=== PATIENT | male | born 1970 | race Caucasian/White ===

== ENCOUNTER → 2022-11-23 07:56 | Outpatient (REF) | payer BC, SELFPAY | LOC: RAD 07:56 | PROVIDERS: ATTENDING PHYSICIAN Family Medicine | DX: R60.0 Localized edema (principal); Z87.891 Personal history of nicotine dependence; R22.43 Localized swelling, mass and lump, lower limb, bilateral | CPT/HCPCS: 93970 ==

== ENCOUNTER → 2023-08-05 06:45 | Outpatient (REF) | payer BC, SELFPAY | LOC: RCS 06:45 | PROVIDERS: ATTENDING PHYSICIAN Internal Medicine Cardiovascular Disease; FAMILY PHYSICIAN Family Medicine; REFERRING PHYSICIAN Specialist | DX: I35.0 Nonrheumatic aortic (valve) stenosis (principal); Q23.1 Congenital insufficiency of aortic valve; I51.7 Cardiomegaly; R03.0 Elevated blood-pressure reading, without diagnosis of hypertension | CPT/HCPCS: 93306 ==

== ENCOUNTER → 2023-08-06 10:52 | Outpatient (REF) | payer BC, SELFPAY | LOC: HWRAD 10:52 | PROVIDERS: ATTENDING PHYSICIAN Family Medicine | DX: I87.2 Venous insufficiency (chronic) (peripheral) (principal) | CPT/HCPCS: 93970 ==

== ENCOUNTER 2023-08-16 06:35 | Day surgery (SDC) | payer BC, SELFPAY ==
--- NOTE | 2023-07-23 10:22 | CM ---
Addendum entered by Angle Hudson 08/09/23 07:23:
Patient is no longer a same day patient.
Addendum entered by JESSICA Sparks 07/23/23 10:30:
Patient plans to stay on first floor and sleep on sofa until home PT works with him on steps in his house.
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
Original Note:
Patient is scheduled for an elective R TKR on 08/16/23- he is a same day patient. Spoke with patient prior to surgery. Introduced role of Orthopedic Navigator. Patient reports that he lives with his in a two story home. There are three steps to
enter and a flight of steps to the second floor. He currently functions independently. He plans to borrow a rolling walker. He has never had VN services. PCP is Dr. Des Ge.
Discussed orthopedic program and post surgical plans. Reviewed that he will have VN services initially (medicare.gov website and ratings reviewed) and will then start outpatient PT. Patient selects VN (face sheet faxed to VN to facilitate
confirmation of benefits) for his home care needs and come to [facility] for outpatient PT.
Patient is in agreement with plan and states that his will be home with him for one week.
Patient will complete online education.
Plan: Orthopedic Navigator will remain available to assist with the care of patient and will reassess discharge needs after surgery.
[2023-07-30 09:26] VITALS: BMI 37.8
[2023-07-30 10:06] LABS: Hematocrit 38.8 % (39.0-52.0); Hemoglobin 12.2 g/dL (13.0-18.0); Mean Corp Hgb Conc. 31.4 g/dL (33.0-37.0); Mean Corpuscular Hgb 25.7 pg (27.0-31.0); Mean Corpuscular Volume 81.7 fL (80.0-94.0); Mean Platelet Volume 13.7 fL (7.4-10.4); Platelet Count 96 10^3/uL (130-400); Red Blood Cell Count 4.75 10^6/uL (4.70-6.10); Red Cell Dist. Width 14.9 % (11.5-14.5); White Blood Cell Count 6.4 10^3/uL (4.8-10.8)
[2023-07-30 10:40] LABS: ALT (SGPT) 25 U/L (0-50); AST (SGOT) 31 U/L (17-59); Alkaline Phosphatase 78 U/L (38-126); Blood Urea Nitrogen 15 mg/dl (9-20); Calcium 9.5 mg/dl (8.4-10.2); Carbon Dioxide 26 mmol/L (22-30); Chloride 106 mmol/L (98-107); Estimated Creatinine Clearance > 125 ml/min; Glucose 139 mg/dl (70-99); Potassium 4.4 mmol/L (3.5-5.1); Sodium 140 mmol/L (135-145); Total Bilirubin 0.8 mg/dl (0.2-1.3); Total Protein 7.1 g/dl (6.3-8.2); eGFR > 60.00
[2023-07-30 11:59] LABS: Glycohemoglobin (HgbA1c) 6.7 % (4.0-5.6)
[2023-08-02 08:38] VITALS: BMI 37.8
[2023-08-16] VITALS (12 sets, daily range): BP systolic 110–174; BP diastolic 63–92; PULSE 78; O2SAT 98
[2023-08-16 09:24] LABS: Glucose - Point of Care 94 mg/dl (70-99)
[2023-08-16] MEDS: CELEBREX 200 MG PO (09:28)
[2023-08-16] MEDS: TYLENOL 650 MG PO ×3 (09:28→22:02)
[2023-08-16] MEDS: NORMOSOL-R 1000 IV ×2 (09:28→14:03)
[2023-08-16 11:43] LABS: Glucose - Point of Care 92 mg/dl (70-99)
--- NOTE | 2023-08-16 13:03 | CM ---
Addendum entered by Angle Hudson 08/17/23 06:40:
Correction: patient's initial PT eval is scheduled for , 08/18.
Original Note:
Reviewed chart. Patient had planned R TKR today. Met with patient and his at bedside. Confirmed information previously obtained for assessment. Also discussed discharge plans. The plan is for patient to go to his 's parent's home at
discharge. This home is a split level with no steps to enter and 5-6 between floors. He will have support from his when he goes home. Patient will go directly to outpatient PT and will come to . He has an appointment scheduled for Wednesday,
08/17. Reviewed two week follow up appointment with PA at Dr. Reid office for removal of cheng; this appointment is already scheduled.
Patient has a rolling walker at home. Discussed need for cane which his states that she will obtain.
He will use [facility] pharmacy for discharge prescriptions.
[2023-08-16 13:14] LABS: Glucose - Point of Care 105 mg/dl (70-99)
[2023-08-16] MEDS: NOVOLOG FLEXPEN-MODERATE RESISTANCE SC (13:50)
[2023-08-16] MEDS: XOPENEX 0.63 MG INHALANT SOLUTION INH (13:52)
[2023-08-16] MEDS: NEURONTIN 300 MG PO ×2 (15:47→22:00)
[2023-08-16] MEDS: NOVOLOG FLEXPEN SC (15:51)
[2023-08-16] MEDS: TYLENOL PO (15:54)
[2023-08-16 15:57] LABS: Glucose - Point of Care 165 mg/dl (70-99)
[2023-08-16] MEDS: NOVOLOG FLEXPEN 4 UNITS SC (15:57)
[2023-08-16] MEDS: NOVOLOG FLEXPEN-MODERATE RESISTANCE 1 UNITS SC (15:57)
[2023-08-16] MEDS: ULTRAM 50 MG PO (16:03)
[2023-08-16] MEDS: LANTUS 0.0599999999999999978 UNITS SC (16:41)
[2023-08-16] MEDS: LIPITOR 20 MG PO (17:19)
--- NOTE | 2023-08-16 17:45 | PTCARENOTE ---
patient worked with PT/OT and got oob with walker to chair for dinner. Pt was given 50mg tramadol for 6/10 knee pain per order. Vital signs are stable, neurovascular check within normal limits for procedure. Pt now back in bed resting, his call gee
is within reach
[2023-08-16] MEDS: XOPENEX 0.63 MG INHALANT SOLUTION 0.630000000000000004 MG INH (20:12)
[2023-08-16 21:26] LABS: Glucose - Point of Care 159 mg/dl (70-99)
[2023-08-16] MEDS: SENOKOT 17.1999999999999993 MG PO (22:00)
[2023-08-16] MEDS: ANCEF 5 IV (22:00)
[2023-08-16] MEDS: VALIUM 5 MG PO (22:00)
[2023-08-16] MEDS: BACTROBAN 2% OINTMENT 1 APPLIC NASAL (22:00)
[2023-08-16] MEDS: GLUCOPHAGE 1000 MG PO (22:01)
[2023-08-16] MEDS: ELIQUIS 2.5 MG PO (22:02)
[2023-08-16] MEDS: COLACE 100 MG PO (22:02)
[2023-08-17] MEDS: TYLENOL PO (01:09)
[2023-08-17 03:00] VITALS: BP 137/80
[2023-08-17] MEDS: ANCEF 5 IV (03:54)
[2023-08-17] MEDS: TYLENOL 650 MG PO ×2 (03:55→08:44)
[2023-08-17 06:58] LABS: Glucose - Point of Care 140 mg/dl (70-99)
[2023-08-17 07:08] VITALS: BP 146/71
[2023-08-17] MEDS: XOPENEX 0.63 MG INHALANT SOLUTION 0.630000000000000004 MG INH (08:20)
--- NOTE | 2023-08-17 08:40 | CON.ONC ---
Impression
Impression
Thrombocytopenia secondary to hepatosplenomegaly of NAFLD of DM
Plan
Plan
Given not excessive bleeding perioperatively and normal preop assessment in past for bleeding disorder proceed with perioperative thromboprophylaxis per practice preference-- no need for followup as outpt
Patient History
History of Present Illness
53yo WM postop R TKR evaluated in past by Dr Rao for mild thrombocytopenia secondary to mild HSM likely attributed to NAFLD from hepatic steatohepatitis secondary to DM. No hx of abnormal bruising or bleeding though attempts to use CPAP from
sleep apnea in the past resulted in epistaxis-- never followed up with ENT. No FH of blood dyscrasias
Past-Medical/Surgical History
DM; HTN; [id number]
Patient Medication
�Medication �Instructions �Recorded �Confirmed �Last Taken �Type
atorvastatin 20 mg tablet 20 mg PO DAILY 07/27/23 08/16/23 08/15/23 10:00 History
buprenorphine 8 mg-naloxone 2 mg 1 film buccal BID 07/27/23 08/16/23 08/15/23 06:00 History
sublingual film
cholecalciferol (vitamin D3) 25 25 mcg PO TID 07/27/23 08/16/23 08/15/23 10:00 History
mcg (1,000 unit) capsule (Vitamin
D3)
losartan 50 mg tablet 50 mg PO DAILY 07/27/23 08/16/23 08/15/23 10:00 History
metformin 1,000 mg tablet 1,000 mg PO BID 07/27/23 08/16/23 08/15/23 10:00 History
cefadroxil 500 mg capsule 500 mg PO BID infection prevention 07/30/23 Unknown Rx
#14 caps
famotidine 20 mg tablet 20 mg PO HS GI prophylaxis #30 tabs 07/30/23 Unknown Rx
gabapentin 300 mg capsule 300 mg PO TID sleep/pain #30 caps 07/30/23 Unknown Rx
mupirocin 2 % topical ointment 1 applic topical BID infection 07/30/23 Unknown Rx
prevention #1 tube
ondansetron 4 mg disintegrating 4 mg PO Q6H PRN n/v #20 tabs 07/30/23 Unknown Rx
tablet
tirzepatide (weight loss) 5 mg/0.5 5 mg SC QWEEK 07/30/23 08/16/23 08/07/23 History
mL subcutaneous pen injector
tramadol 50 mg tablet 50 mg PO Q6H PRN 1 tab moderate 07/30/23 Unknown Rx
pain, 2 if severe #30 tabs
apixaban 2.5 mg tablet (Eliquis) 2.5 mg PO BID blood clot 08/10/23 Unknown Rx
preventiom #90 tabs
Active Medications
Generic Name Dose Route Start Last Admin
Trade Name Freq PRN Reason Stop Dose Admin
Acetaminophen 650 mg 08/16/23 12:00 08/17/23 03:55
Acetaminophen 325 Mg Tablet PO 09/13/23 11:59 650 mg
Q4HWA ALYSIA Administration
Al Hydrox/Mg Hydrox/Simethicone 30 ml 08/16/23 10:29
Mag/Al/Simethicone Suspension 30 Ml Cup PO 09/13/23 10:28
Q4HPRN PRN
INDIGESTION
Apixaban 2.5 mg 08/16/23 20:00 08/16/23 22:02
Apixaban (Eliquis) 2.5 Mg Tablet PO 09/13/23 19:59 2.5 mg
BID ALYSIA Administration
Atorvastatin Calcium 20 mg 08/16/23 18:00 08/16/23 17:19
Atorvastatin (Lipitor) 20 Mg Tablet PO 09/13/23 17:59 20 mg
QPM ALYSIA Administration
Buprenorphine 8 mg 08/17/23 08:00
Buprenorphine 8 Mg Sl Tablet SL 08/31/23 07:59
BID ALYSIA
Diazepam 5 mg 08/16/23 20:00 08/16/23 22:00
Diazepam 5 Mg Tablet PO 09/13/23 19:59 5 mg
BID ALYSIA Administration
Docusate Sodium 100 mg 08/16/23 20:00 08/16/23 22:02
Docusate Sodium 100 Mg Capsule PO 09/13/23 19:59 100 mg
BID ALYSIA Administration
Gabapentin 300 mg 08/16/23 16:00 08/16/23 22:00
Gabapentin 300 Mg Capsule PO 09/13/23 15:59 300 mg
TID ALYSIA Administration
Hydromorphone HCl 0.5 mg 08/16/23 10:29
Hydromorphone 0.5 Mg/0.5 Ml Syringe IV 08/30/23 10:28
Q4HPRN PRN
severe breakthrough pain
Insulin Glargine 6 units/ 0.06 mls @ 0 mls/hr 08/16/23 16:00 08/16/23 16:41
Device SC 09/13/23 15:59 0.06 mls
DAILY ALYSIA Administration
As Directed
Insulin Aspart 4 units 08/16/23 11:30 08/16/23 15:57
Insulin Aspart (100 Units/Ml) 3 Ml Flexpen SC 09/13/23 11:29 4 units
AC ALYSIA Administration
Insulin Aspart 0 units 08/16/23 11:30 08/16/23 15:57
Insulin Aspart Moderate Resistance 300 Units/3 Ml Pen.Injctr SC 09/13/23 11:29 1 units
AC ALYSIA Administration
Protocol
Levalbuterol HCl 0.63 mg 08/16/23 10:30 08/17/23 08:20
Levalbuterol 0.63 Mg/3 Ml Ampul INH 0.63 mg
R BID ALYSIA Administration
Protocol
Losartan Potassium 50 mg 08/17/23 08:00
Losartan 50 Mg Tablet PO 09/14/23 07:59
DAILY ALYSIA
Magnesium Hydroxide 30 ml 08/16/23 10:29
Milk Of Magnesia 30 Ml Cup PO 09/13/23 10:28
DAILYPRN PRN
constipation
Metformin HCl 1,000 mg 08/16/23 21:00 08/16/23 22:01
Metformin 1000 Mg Regular Release Tablet PO 09/13/23 20:59 1,000 mg
BID@0800,1700 LAYSIA Administration
Midodrine 5 mg 08/16/23 13:00 08/16/23 17:16
Midodrine 5 Mg Tablet PO 09/13/23 12:59 Not Given
TID@0800,1300,1800 ALYSIA
Mupirocin 0 applic 08/16/23 20:00 08/16/23 22:00
Mupirocin 2% (Ointment) 22 Gram Tube NASAL 08/17/23 20:01 1 applic
BID ALYSIA Administration
Ondansetron HCl 4 mg 08/16/23 10:29
Ondansetron 4 Mg/2 Ml Vial IV 09/13/23 10:28
Q6HPRN PRN
NAUSEA
Prochlorperazine Maleate 5 mg 08/16/23 10:29
Prochlorperazine 5 Mg Tablet PO 09/13/23 10:28
Q6HPRN PRN
nausea/vomiting
Sennosides 17.2 mg 08/16/23 20:00 08/16/23 22:00
Sennosides (Senokot) 8.6 Mg Tablet PO 09/13/23 19:59 17.2 mg
BID ALYSIA Administration
Tamsulosin HCl 0.4 mg 08/16/23 10:29
Tamsulosin 0.4 Mg Capsule PO 09/13/23 10:28
DAILYPRN PRN
bladder scan volume > 400 mL
Tramadol HCl 50 mg 08/16/23 10:24 08/16/23 16:03
Tramadol Hcl 50 Mg Tablet PO 09/13/23 10:23 50 mg
Q6HPRN PRN Administration
moderate pain
Tramadol HCl 100 mg 08/16/23 10:24
Tramadol Hcl 50 Mg Tablet PO 09/13/23 10:23
Q6HPRN PRN
severe pain
Tramadol HCl 25 mg 08/16/23 10:24
Tramadol Hcl 50 Mg Tablet PO 09/13/23 10:23
Q6HPRN PRN
mild pain
Review of Systems
-
History Source: Patient
All Other Systems: Reviewed and Negative
Physical Exam
-
General: Well Nourished and No Apparent Distress
HEENT: Moist Mucous Membranes
Cardiology: Normal Sinus Rhythm
Pulmonary: Clear
GI: Soft and Normal Bowel Sounds
Musculoskeletal: No Clubbing and No Cyanosis
Extremities: Pulses Present
Neurology: Non Focal
Psych: Calm
Labs
Lab Results
WBC 6.4 10^3/uL (4.8-10.8) 07/30/23 09:13
RBC 4.75 10^6/uL (4.70-6.10) 07/30/23 09:13
Hgb 12.2 g/dL (13.0-18.0) L 07/30/23 09:13
Hct 38.8 % (39.0-52.0) L 07/30/23 09:13
MCV 81.7 fL (80.0-94.0) 07/30/23 09:13
MCH 25.7 pg (27.0-31.0) L 07/30/23 09:13
MCHC 31.4 g/dL (33.0-37.0) L 07/30/23 09:13
RDW 14.9 % (11.5-14.5) H 07/30/23 09:13
Plt Count 96 10^3/uL (130-400) L 07/30/23 09:13
MPV 13.7 fL (7.4-10.4) H 07/30/23 09:13
Creatinine 0.6 mg/dL (0.7-1.3) L 07/30/23 09:12
Vital Signs
Vital Signs
Temp Pulse Resp BP Pulse Ox
98.2 F 77 17 146/71 99
08/17/23 07:08 08/17/23 07:08 08/17/23 07:08 08/17/23 07:08 08/17/23 07:08
[2023-08-17] MEDS: COZAAR 50 MG PO (08:44)
[2023-08-17] MEDS: NEURONTIN 300 MG PO (08:45)
[2023-08-17] MEDS: ULTRAM 50 MG PO (08:45)
[2023-08-17] MEDS: COLACE 100 MG PO (08:45)
[2023-08-17] MEDS: SENOKOT 17.1999999999999993 MG PO (08:45)
[2023-08-17] MEDS: SUBUTEX 8 MG SL (08:45)
[2023-08-17] MEDS: VALIUM 5 MG PO (08:45)
[2023-08-17] MEDS: GLUCOPHAGE 1000 MG PO (08:45)
[2023-08-17] MEDS: BACTROBAN 2% OINTMENT 1 APPLIC NASAL (08:46)
[2023-08-17] MEDS: ELIQUIS 2.5 MG PO (08:46)
--- NOTE | 2023-08-17 08:46 | CM ---
Addendum entered by Angle Hudson 08/17/23 10:04:
Patient did well in therapy. He and his have no concerns about discharge plans.
Original Note:
Reviewed chart and held rounds with PT, OT and nursing. Met with patient at bedside. Discussed discharge plans. The plan continues to be for patient to go to his 's parent's home at discharge. He will have support from his and mother in law
when he goes home. Patient will go directly to outpatient PT and will come to . He has an appointment scheduled for , 08/18. Reviewed two week follow up appointment with PA at Dr. Reid office for removal of cheng; this appointment is
already scheduled.
Patient has a rolling walker at home.
He will use [facility] pharmacy if additional discharge prescriptions are needed (meds were sent prior to surgery as patient was initially scheduled as same day).
[2023-08-17] MEDS: NOVOLOG FLEXPEN-MODERATE RESISTANCE SC (08:51)
[2023-08-17] MEDS: LANTUS 0.0599999999999999978 UNITS SC (08:55)
[2023-08-17] MEDS: NOVOLOG FLEXPEN 4 UNITS SC (08:55)
[2023-08-17 09:15] VITALS: BP 154/83; PULSE 97; O2SAT 98
[2023-08-17 10:01] VITALS: BP 106/69; PULSE 90; O2SAT 97
[2023-08-17 11:14] VITALS: BP 127/66
--- NOTE | 2023-08-17 12:32 | W.PN.ORTHO ---
Today's Communication / Plan
-
d/c
Assessment
.
Distal Motor Intact: Yes
Dressing:
Clean, dry and intact.
Assessment:
Central/CLAUDIA-IS, nebs--sats stable
[id number] by echo 07/2023
-IVF minimized-Midodrine empirically-daily weight/I&O stable
Hx Opioid dependence-Ultram only with alternative pain management effective-continue Suboxone, resumed today
Plan
.
Surgery / Date: R TKA Dr. Reid 08/16/23
DVT Prophylaxis: Other (Eliquis+SCD)
Activity:
Out of bed.
PT/OT
Discharge Plan: Home w/ Outpatient PT
Subjective
.
.:
Patient resting comfortably.
Vital Signs and Labs
.
Vital Signs and Labs:
Lab Results
07/30/23 09:13
07/30/23 09:12
Temp Pulse Resp BP Pulse Ox
98.3 F 83 17 127/66 98
08/17/23 11:14 08/17/23 11:14 08/17/23 11:14 08/17/23 11:14 08/17/23 11:14
Non-invasive Hgb result: 12.2
Physical Exam
-
HEENT: No pallor, cyanosis, or jaundice. Throat clear.
NECK: Supple. No JVD.
RESPIRATORY: Lungs clear to auscultation.
CVS: S1, S2 normal. RRR.� No murmur, rub or gallop.
ABDOMEN: Soft, non-tender. No distension. BS+/normal.
EXTREMITIES: strength equal, no calf pain with palpation
MUD MIXER HELPER: AOx3. No focal deficits. deep fat cook fry grossly intact
--- NOTE | 2023-08-17 12:37 | W.DS.TRANS ---
DC Summary - Casting Assistant
-
Discharge Instructions:
Discharge Diagnosis/Procedures R TKA Dr. Reid 08/16/23
Diet Diabetic, Carb Controlled
Activity With Walker
Driving Restrictions No driving
Bathing Restrictions OK to Shower
Instructions:
Stand-Alone Forms: Total Hip/Knee Replacement D/C
Changes to Home Medications: Yes
Discharge Medications:
DC Medications w/original date entered in [employer]
atorvastatin 20 mg tablet 20 mg PO DAILY 07/27/23
buprenorphine 8 mg-naloxone 2 mg sublingual film 1 film buccal BID 07/27/23
cholecalciferol (vitamin D3) 25 mcg (1,000 unit) capsule (Vitamin D3) 25 mcg PO TID 07/27/23
losartan 50 mg tablet 50 mg PO DAILY 07/27/23
metformin 1,000 mg tablet 1,000 mg PO BID 07/27/23
cefadroxil 500 mg capsule 500 mg PO BID infection prevention #14 caps 07/30/23
famotidine 20 mg tablet 20 mg PO HS GI prophylaxis #30 tabs 07/30/23
gabapentin 300 mg capsule 300 mg PO TID sleep/pain #30 caps 07/30/23
mupirocin 2 % topical ointment 1 applic topical BID infection prevention #1 tube 07/30/23
ondansetron 4 mg disintegrating tablet 4 mg PO Q6H PRN n/v #20 tabs 07/30/23
tirzepatide (weight loss) 5 mg/0.5 mL subcutaneous pen injector 5 mg SC QWEEK 07/30/23
tramadol 50 mg tablet 50 mg PO Q6H PRN 1 tab moderate pain, 2 if severe #30 tabs 07/30/23
apixaban 2.5 mg tablet (Eliquis) 2.5 mg PO BID blood clot preventiom #90 tabs 08/10/23
acetaminophen 325 mg capsule (Tylenol) 650 mg (2 x 325 mg) PO QID #2 caps 08/17/23
aspirin 81 mg chewable tablet (Zully Chewable Low Dose Aspirin) 81 mg PO DAILY #1 tab 08/17/23
docusate sodium 100 mg capsule (Colace) 100 mg PO BID stool softner #1 cap 08/17/23
magnesium hydroxide 400 mg/5 mL oral suspension (Milk of Magnesia) 30 ml PO HS PRN Constipation #1 mL 08/17/23
sennosides 8.6 mg tablet (Senokot) 17.2 mg (2 x 8.6 mg) PO BID laxative #2 tabs 08/17/23
Home Medication Changes
cefadroxil 500 mg capsule 500 mg PO BID infection prevention #14 caps 07/30/23�
famotidine 20 mg tablet 20 mg PO HS GI prophylaxis #30 tabs 07/30/23�
gabapentin 300 mg capsule 300 mg PO TID sleep/pain #30 caps 07/30/23�
mupirocin 2 % topical ointment 1 applic topical BID infection prevention #1 tube 07/30/23�
ondansetron 4 mg disintegrating tablet 4 mg PO Q6H PRN n/v #20 tabs 07/30/23�
tramadol 50 mg tablet 50 mg PO Q6H PRN 1 tab moderate pain, 2 if severe #30 tabs 07/30/23�
apixaban 2.5 mg tablet (Eliquis) 2.5 mg PO BID blood clot preventiom #90 tabs 08/10/23�
aspirin 81 mg chewable tablet (Zully Chewable Low Dose Aspirin) 81 mg PO DAILY #1 tab 08/17/23�
Pending Results: No
== END 2023-08-17 11:58 | disposition home or self-care (01) ==
LOC: SDS 06:35
PROVIDERS: ATTENDING PHYSICIAN Specialist; FAMILY PHYSICIAN Family Medicine; OTHER PHYSICIAN Internal Medicine Hematology & Oncology
DX: M17.11 Unilateral primary osteoarthritis, right knee (principal); E66.9 Obesity, unspecified; Z68.37 Body mass index [BMI] 37.0-37.9, adult; Q23.1 Congenital insufficiency of aortic valve; I87.2 Venous insufficiency (chronic) (peripheral); F11.11 Opioid abuse, in remission; Z87.891 Personal history of nicotine dependence
CPT/HCPCS: 27447; 36415; 73560; 80053; 82962; 83036; 85027; 87070; 93005; 94640; 97110; 97116; 97163; 97166; 97535; C1713; C1776

== ENCOUNTER 2023-08-25 18:03 | Outpatient (RCR) | payer BC, SELFPAY | END 2023-08-25 23:59 | disposition home or self-care (01) | LOC: RPT 18:03 | PROVIDERS: ATTENDING PHYSICIAN Specialist; FAMILY PHYSICIAN Family Medicine | DX: Z47.1 Aftercare following joint replacement surgery (principal); Z73.6 Limitation of activities due to disability; Z96.651 Presence of right artificial knee joint | CPT/HCPCS: 97010; 97110; 97140; 97162; 97530 ==

== ENCOUNTER → 2023-09-29 14:02 | Outpatient (REF) | payer BC, SELFPAY ==
[2023-09-29 15:22] LABS: % Basophils 0.6 % (0-2); % Eosinophils 2.8 % (0-6); % Immature Granulocytes 0.4 % (0-0.5); % Lymphocytes 27.9 % (20.5-51.1); % Monocytes 5.7 % (1.7-9.3); % Neutrophils 62.6 % (42.2-75.2); Absolute Basophils 0.1 10^3/uL (0-0.2); Absolute Eosinophils 0.2 10^3/uL (0-0.7); Absolute Lymphocytes 2.3 10^3/uL (1.2-3.4); Absolute Monocytes 0.5 10^3/uL (0.1-0.6); Absolute Neutrophils 5.1 10^3/uL (1.4-6.5); Hematocrit 40.5 % (39.0-52.0); Hemoglobin 12.8 g/dL (13.0-18.0); Mean Corp Hgb Conc. 31.6 g/dL (33.0-37.0); Mean Corpuscular Volume 82.2 fL (80.0-94.0); Mean Platelet Volume 12.8 fL (7.4-10.4); Nucleated Red Blood Cells % 0 % (-); Platelet Count 119 10^3/uL (130-400); Red Blood Cell Count 4.93 10^6/uL (4.70-6.10); Red Cell Dist. Width 15.1 % (11.5-14.5); White Blood Cell Count 8.1 10^3/uL (4.8-10.8)
[2023-09-29 15:32] LABS: Blood Urea Nitrogen 10 mg/dl (9-20); Calcium 9.9 mg/dl (8.4-10.2); Carbon Dioxide 26 mmol/L (22-30); Chloride 107 mmol/L (98-107); Glucose 83 mg/dl (70-99); Potassium 4.5 mmol/L (3.5-5.1); Sodium 140 mmol/L (135-145); eGFR > 60.00
[2023-09-29 16:52] LABS: ALT (SGPT) 21 U/L (0-50); AST (SGOT) 31 U/L (17-59); Albumin 4.5 g/dl (3.5-5.0); Alkaline Phosphatase 85 U/L (38-126); Total Bilirubin 0.6 mg/dl (0.2-1.3); Total Protein 7.6 g/dl (6.3-8.2)
[2023-09-30 08:37] LABS: Glycohemoglobin (HgbA1c) 5.6 % (4.0-5.6)
--- NOTE | 2023-10-11 14:38 | VNURNOTE ---
Called patient to explain [facility], left a message. Called patient's spouse Tisha and spoke with her, explained [facility]. Per spouse, the patient cancelled his 10/25/23 L TKA surgery because he wants to work a little longer. Patient is
waiting to hear from orthopedics office regarding rescheduling surgery.
Spouse stated Gal had R knee done in July and was D/C'ed to outpatient PT at . She confirms they live in a 2 story house and current address is [address] [place] [address]. They are currently living at parents' house with a small
dog. Current pharmacy is [facility] in [place]. The patient has a rolling walker and single point cane. PCP is [facility] Ge.
Post surgical plans TBD as well as surgical date TBD. Provided [facility] contact number. [facility] liaison will follow up with Ortho.
== END ==
LOC: REG 14:02
PROVIDERS: ATTENDING PHYSICIAN Specialist; FAMILY PHYSICIAN Family Medicine
DX: M17.12 Unilateral primary osteoarthritis, left knee (principal); Z01.818 Encounter for other preprocedural examination
CPT/HCPCS: 36415; 80053; 83036; 85025; 87070

== ENCOUNTER 2023-09-29 17:13 | Outpatient (RCR) | payer BC, SELFPAY | END 2023-09-29 23:59 | disposition home or self-care (01) | LOC: RPT 17:13 | PROVIDERS: ATTENDING PHYSICIAN Specialist; FAMILY PHYSICIAN Family Medicine | DX: Z47.1 Aftercare following joint replacement surgery (principal); Z96.651 Presence of right artificial knee joint; Z73.6 Limitation of activities due to disability | CPT/HCPCS: 97010; 97110; 97116; 97140; 97530 ==

== ENCOUNTER → 2023-10-15 14:38 | Outpatient (REF) | payer BC, SELFPAY | LOC: HWRAD 14:38 | PROVIDERS: ATTENDING PHYSICIAN Family Medicine | DX: Z87.891 Personal history of nicotine dependence (principal) | CPT/HCPCS: 71271 ==

== ENCOUNTER 2023-10-20 18:04 | Outpatient (RCR) | payer BC, SELFPAY | END 2023-10-20 23:59 | disposition home or self-care (01) | LOC: RPT 18:04 | PROVIDERS: ATTENDING PHYSICIAN Specialist; FAMILY PHYSICIAN Family Medicine | DX: Z47.1 Aftercare following joint replacement surgery (principal); Z96.651 Presence of right artificial knee joint; Z73.6 Limitation of activities due to disability | CPT/HCPCS: 97010; 97110; 97140; 97530 ==

== ENCOUNTER → 2025-02-26 11:04 | Outpatient (REF) | payer BC, SELFPAY | LOC: HWRAD 11:04 | PROVIDERS: ATTENDING PHYSICIAN Family Medicine | DX: Z87.891 Personal history of nicotine dependence (principal) | CPT/HCPCS: 71271 ==